=== PATIENT | male | born 1965 | race Caucasian/White ===

== ENCOUNTER 2018-10-17 15:48 | Emergency (ER) | payer BC, OTHER ==
[2018-10-17] MEDS ORDERED: predniSONE 20 MG Tab PO ONE (16:12)
[2018-10-17] MEDS ORDERED: Ketorolac 60 MG/2 ML SDV IM ONE (16:12)
--- NOTE | 2018-10-17 16:18 | EDM.PDOC ---
ED HPI GENERAL MEDICAL PROBLEM - General Chief Complaint: Upper Extremity Injury/Pain Stated Complaint: SHOULDER PAIN Time Seen by Provider: 10/17/18 16:01 - History of Present Illness INITIAL COMMENTS - FREE TEXT/NARRATIVE: HISTORY AND PHYSICAL: History of present illness: The patient is a 53-year-old male with a known history of neck issues, nerve impingement for which he has been seen by provider not associated with our hospital and has had steroid injections in his neck in the past which have helped and presents with aggravation of his chronic problem with muscle spasm of his posterior neck and upper shoulder. The patient says he's been doing well and has not required any medication of late but he has been doing more activity with his arms and more work and he feels that he aggravated things. He is planning on following up with his prior doctor but is unable to do so at the moment and would like some relief. He did see a chiropractor about a week ago which he thinks after the manipulation that things got worse and is having more spasm. He is not range of motioning the arm very much and is definitely decreased with his activity due to the discomfort. He has no weakness in the left upper extremity but he is having tingling and some numbness that is new and starting to travel down to his hand. He says that when he moves his hand and fingers and arms it does feel better. He has no chest pain or shortness of breath and no recent trauma to the area. The patient tells me he had an MRI in January or February of last year with his provider that did the steroid injections in the back. He said that this was a back specialist Review of systems: As per history of present illness and below otherwise all systems reviewed and negative. Past medical history: As per history of present illness and as reviewed below otherwise noncontributory. Surgical history: As per history of present illness and as reviewed below otherwise noncontributory. Social history: No reported history of drug or alcohol abuse. Family history: As per history of present illness and as reviewed below otherwise noncontributory. Physical exam: General: Well-developed well-nourished man who is nontoxic and vital signs were noted by me HEENT: Atraumatic, normocephalic, negative for conjunctival pallor or scleral icterus, mucous membranes moist, throat clear, neck supple, nontender, trachea midline. There are no midline step-offs in his defects of the cervical spine The posterior paracervical musculature on the left is tender to palpation extending into the trapezius and upper back as well as extending to the deltoid posteriorly and there is reproducible tenderness with palpation. There is no swelling. Lungs: Clear to auscultation, breath sounds equal bilaterally, chest nontender. Heart: S1S2, regular rate and rhythm no overt murmurs Abdomen: Soft, nondistended, nontender. NABS. Pelvis: Deferred Genitourinary: Deferred. Rectal: Deferred. Extremities: Atraumatic, with full range of motion of all extremities. More specifically at the left upper extremity there is tenderness as described above in the neck exam and there is no compartment swelling or soft tissue swelling appreciated. The patient has strength 5/5 in the left upper extremity throughout and pulses are intact. With range of motion the patient does complain of spasm and pain in his left neck and deltoid area. There is no bony tenderness defects or deformities Neurovascular unremarkable. Neuro: Awake, alert, oriented. Cranial nerves II through XII unremarkable. Cerebellum unremarkable. Motor and sensory unremarkable throughout. Exam nonfocal. Diagnostics: Therapeutics: Toradol as patient drove himself, prednisone I discussed with the patient that I cannot reimage him at this time and he does not meet criteria for an emergent MRI but he may need one going forward as his disease process may progress. Advised him on reasons to return to the ED and will give him medications for home including anti-inflammatories and muscle relaxers tramadol. Advised him to range of motion and try to wiggle and move the distal arm as some of the numbness and tingling may be caused from lack of movement. Impression: Left neck and shoulder musculoskeletal pain strain, cervical radiculopathy acute on chronic Definitive disposition and diagnosis as appropriate pending reevaluation and review of above. Left Arm Pain Score (Numeric/FACES): 8 - Related Data Allergies Allergy/AdvReac Type Severity Reaction Status Date / Time No Known Allergies Allergy Verified 10/17/18 16:05 Home Meds: Home Meds . [Unable to Verify Home Med List] 10/17/18 [History] Review of Systems - Review of Systems Review Of Systems: ROS reveals no pertinent complaints other than HPI. ED EXAM, GENERAL - Physical Exam Exam: See Below (See dictation) Course - Vital Signs Last Recorded V/S: Last Vital Signs Temp 36.5 C 10/17/18 16:03 Pulse 78 10/17/18 16:03 Resp 18 10/17/18 16:03 BP 171/100 H 10/17/18 16:03 Pulse Ox 95 10/17/18 16:03 - Orders/Labs/Meds Orders: Active Orders 24 hr Category Date Time Status Ketorolac [Toradol] Med 10/17/18 16:12 Once 60 mg IM ONETIME ONE predniSONE Med 10/17/18 16:12 Once 20 mg PO ONETIME ONE Departure - Departure Time of Disposition: 16:17 Disposition: Home, Self-Care 01 Condition: Good Clinical Impression: Cervical radiculopathy, Musculoskeletal pain - Discharge Information Referrals: PCP,None [Primary Care Provider] - Additional Instructions: The following information is given to patients seen in the emergency department who are being discharged to home. This information is to outline your options for follow-up care. We provide all patients seen in our emergency department with a follow-up referral. The need for follow-up, as well as the timing and circumstances, are variable depending upon the specifics of your emergency department visit. If you don't have a primary care physician on staff, we will provide you with a referral. We always advise you to contact your personal physician following an emergency department visit to inform them of the circumstance of the visit and for follow-up with them and/or the need for any referrals to a consulting specialist. The emergency department will also refer you to a specialist when appropriate. This referral assures that you have the opportunity for followup care with a specialist. All of these measure are taken in an effort to provide you with optimal care, which includes your followup. Under all circumstances we always encourage you to contact your private physician who remains a resource for coordinating your care. When calling for followup care, please make the office aware that this follow-up is from your recent emergency room visit. If for any reason you are refused follow-up, please contact the [facility] emergency department at and ask to speak to the emergency department charge nurse. [facility] Primary care- [place] [address] Fill prescription and take medications as prescribed and needed. Please call and schedule a follow-up appointment with your provider or one of ours for reevaluation further care as you may need more imaging or treatment going forward. Return to ER as needed and as discussed - My Orders Last 24 Hours: My Active Orders 10/17/18 16:12 Ketorolac [Toradol] 60 mg IM ONETIME ONE predniSONE 20 mg PO ONETIME ONE - Assessment/Plan Last 24 Hours: My Active Orders 10/17/18 16:12 Ketorolac [Toradol] 60 mg IM ONETIME ONE predniSONE 20 mg PO ONETIME ONE
== END 2018-10-17 16:41 | disposition home or self-care (01) ==
LOC: MW.ED 15:48
DX: M54.12 Radiculopathy, cervical region (principal); M25.512 Pain in left shoulder
CPT/HCPCS: 96372; 99283; A9270; J1885